=== PATIENT | female | born 1960 | race Caucasian/White ===

== ENCOUNTER 2018-03-23 11:23 | Outpatient (CLI) | payer OTHER | END 2018-03-23 11:24 | disposition home or self-care (01) | LOC: BICMAMMO 11:23 | PROVIDERS: ATTEND Family Medicine | DX: Z12.31 Encounter for screening mammogram for malignant neoplasm of breast (principal); R92.1 Mammographic calcification found on diagnostic imaging of breast; Z85.3 Personal history of malignant neoplasm of breast | CPT/HCPCS: 77063; 77067 ==